=== PATIENT | female | born 1995 | race Caucasian/White ===

== ENCOUNTER 2018-05-19 17:54 | Emergency (ER) | payer SELFPAY ==
[~2018-05-19] VITALS: Ht 167.6 cm; Wt 69.9 kg
--- NOTE | 2018-05-19 18:42 | NUR ---
23 Y/O FEMALE PLACED IN BED 16 C/O HEADACHE.
--- NOTE | 2018-05-19 18:44 | NUR ---
ACI WITH RX GIVEN. PT DISCHARGED HOME TO FOLLOW UP WITH PMD.
[2018-05-19 18:47] VITALS: BP 142/79
== END 2018-05-19 18:47 | disposition home or self-care (01) ==
LOC: ER 17:58
DX: M62.838 Other muscle spasm (principal); Z87.19 Personal history of other diseases of the digestive system
CPT/HCPCS: A4606; Z7610

== ENCOUNTER 2018-05-23 16:13 | Emergency (ER) | payer SELFPAY ==
[~2018-05-23] VITALS: Ht 162.6 cm; Wt 69.9 kg
[2018-05-23 16:13] VITALS: BP 124/90
[2018-05-23] MEDS ORDERED: KETOROLAC TROMETHAMINE INJ 30 MG/ML VIAL ONE (16:41)
[2018-05-23] MEDS ORDERED: KETOROLAC TROMETHAMINE INJ 30 MG/ML VIAL IM ONE (17:00)
--- NOTE | 2018-05-23 17:14 | NUR ---
Patient discharged to home in stable condition. Written and verbal after care instructions given. Patient verbalizes understanding of instruction.
== END 2018-05-23 17:14 | disposition home or self-care (01) ==
LOC: ER 16:16
DX: M62.830 Muscle spasm of back (principal); G44.209 Tension-type headache, unspecified, not intractable
CPT/HCPCS: 96372; 99283; A4606; J1885; Z7610

== ENCOUNTER 2020-08-16 14:45 | Emergency (ER) | payer OTHER ==
[~2020-08-16] VITALS: Ht 167.6 cm; Wt 66.7 kg
--- NOTE | 2020-08-16 15:04 | NUR ---
CAME IN FOR LT SIDE CHEST PAIN, ON & OFF X 2WKS, PRESSURE-LIKE, NON-RADIATING. TO ER BED 6, HOOKED TO [employer], BP CUFF AND POX. PATIENT NOTED SINUS RHYTHM. CHANGED TO HOSP GOWN, WARM BLANKET PROVIDED, PATIENT AAO x 4, NAD NOTED.
[2020-08-16 15:50] LABS: HEMOGLOBIN 12.7 g/dL (11.5-14.8); WHITE BLOOD COUNT (AUTO) 7.2 K/uL (4.3-11.0)
[2020-08-16 15:56] LABS: BASOPHILS % (AUTO) 0.4 % (0.0-2.0); EOSINOPHILS % (AUTO) 0.5 % (0.0-6.0); HEMATOCRIT 38 % (33-45); LYMPHOCYTES # (AUTO) 2.1 /CMM (0.8-4.8); LYMPHOCYTES % (AUTO) 29.5 % (20.0-44.0); MEAN CORPUSCULAR HGB CONC 34 g/dl (31.0-36.0); MEAN CORPUSCULAR VOLUME 89 fL (82-100); MONOCYTES # (AUTO) 0.4 /CMM (0.1-1.30); MONOCYTES % (AUTO) 6.1 % (2.0-12.0); NEUTROPHILS # (AUTO) 4.6 /CMM (1.8-8.9); NEUTROPHILS % (AUTO) 63.5 % (43.0-81.0); PLATELET COUNT (AUTO) 300 /CMM (150-450); RED BLOOD CELL COUNT(AUTO) 4.22 MIL/uL (4.0-5.2)
[2020-08-16 15:59] LABS: CALCIUM, SERUM 8.9 mg/dL (8.5-10.1); CARBON DIOXIDE 28 mmol/L (21-32); CHLORIDE 102 mmol/L (98-107); CREATININE 0.6 mg/dL (0.6-1.3); GLUCOSE 86 mg/dL (74-106); POTASSIUM 3.6 mmol/L (3.5-5.1); SODIUM SERUM 139 mmol/L (136-145); UREA NITROGEN, BLOOD 9 mg/dL (7-18)
--- NOTE | 2020-08-16 16:50 | NUR ---
Patient discharged to home in stable condition. Written and verbal after care instructions given. Patient verbalizes understanding of instruction.
[2020-08-16 16:51] VITALS: BP 117/88
== END 2020-08-16 16:51 | disposition home or self-care (01) ==
LOC: ER 14:46
DX: R07.89 Other chest pain (principal)
CPT/HCPCS: 36415; 71045-TC; 80048-TC; 84484-TC; 85025-TC

== ENCOUNTER 2024-01-08 09:46 | Emergency (ER) | payer OTHER ==
[~2024-01-08] VITALS: Ht 165.1 cm; Wt 70.3 kg
[2024-01-08] MEDS ORDERED: KETOROLAC TROMETHAMINE 15 MG/ML VIAL ONE (10:35)
[2024-01-08] MEDS ORDERED: ONDANSETRON HCL/PF 4 MG/2 ML VIAL ONE (10:35)
[2024-01-08 10:38] LABS: BASOPHILS % (AUTO) 0.3 % (0.0-2.0); EOSINOPHILS % (AUTO) 0.1 % (0.0-6.0); HEMATOCRIT 36 % (33-45); HEMOGLOBIN 12.3 g/dL (11.5-14.8); LYMPHOCYTES # (AUTO) 1.3 K/uL (0.8-4.8); LYMPHOCYTES % (AUTO) 10.2 % (20.0-44.0); MEAN CORPUSCULAR HEMOGLOBIN 30 PG (26.0-33.0); MEAN CORPUSCULAR HGB CONC 34 g/dl (31.0-36.0); MEAN CORPUSCULAR VOLUME 87 fL (82-100); MONOCYTES # (AUTO) 0.7 K/uL (0.1-1.30); MONOCYTES % (AUTO) 5.5 % (2.0-12.0); NEUTROPHILS # (AUTO) 10.4 K/uL (1.8-8.9); NEUTROPHILS % (AUTO) 83.9 % (43.0-81.0); PLATELET COUNT (AUTO) 295 K/uL (150-450); RED BLOOD CELL COUNT(AUTO) 4.15 MIL/uL (4.0-5.2); RED CELL DISTRIBUTION WIDTH 13.2 % (11.5-15.0); WHITE BLOOD COUNT (AUTO) 12.4 K/uL (4.3-11.0)
[2024-01-08 10:42] LABS: APPEARANCE,URINE Cloudy (CLEAR); BILIRUBIN,URINE Negative (NEGATIVE); BLOOD, URINE Moderate Ery/uL (NEGATIVE); COLOR,URINE YELLOW (YELLOW); KETONES,URINE Trace mg/dL (NEGATIVE); LEUKOCYTE ESTERASE ,URINE Moderate (NEGATIVE); NITRITE, URINE Negative (NEGATIVE); PH,URINE 5.5 (5.0-8.0); PROTEIN,URINE Trace mg/dl (NEGATIVE); UGLUCOSE Negative (NEGATIVE)
[2024-01-08] MEDS: KETOROLAC TROMETHAMINE 15 MG/ML VIAL IV ONE (10:42)
[2024-01-08] MEDS: ONDANSETRON HCL/PF 4 MG/2 ML VIAL IVP ONE (10:42)
[2024-01-08] MEDS: IV NS 0.9% 1,000 ML BAG IV ONE (10:43)
[2024-01-08 10:45] LABS: CALCIUM, SERUM 8.7 mg/dL (8.5-10.1); CREATININE 0.7 mg/dL (0.6-1.3); POTASSIUM 3.8 mmol/L (3.5-5.1)
[2024-01-08 10:46] LABS: PREGNANCY TEST URINE QUAL NEGATIVE (NEGATIVE)
[2024-01-08 10:51] LABS: ALBUMIN 3.9 g/dL (3.4-5.0); BILIRUBIN,DIRECT 0.2 mg/dL (0.0-0.2); BILIRUBIN,TOTAL 0.9 mg/dL (0.2-1.0); TOTAL PROTEIN, SERUM 8.1 g/dL (6.4-8.2)
[2024-01-08 10:58] LABS: ADD URINE CULTURE YES; WBC,URINE 21-50 /HPF (0-3)
[2024-01-08 10:59] LABS: BACTERIA,URINE Moderate /HPF (None Seen)
[2024-01-08] MEDS ORDERED: IBUP-1953 PO (11:28)
[2024-01-08] MEDS ORDERED: CEPH500T PO (11:28)
[2024-01-08] MEDS: CEFTRIAXONE 1 G in IV D5W 50 ML IV ONE (11:51)
[2024-01-08] MEDS: CEFTRIAXONE 1GM BAG (ER ONLY) 1 GM/50 ML PIGGYBACK IV ONE (11:51)
[2024-01-08 12:34] VITALS: BP 118/67; TEMP 99; O2SAT 100
== END 2024-01-08 12:23 | disposition home or self-care (01) ==
LOC: ER 10:01
DX: N12 Tubulo-interstitial nephritis, not specified as acute or chronic (principal); R10.2 Pelvic and perineal pain
CPT/HCPCS: 99285; 74176; 96365; 96375; 96361; 85025; 80048; 80076; 84703; 81001; 36415; J0696 ×2; J2405; J7060; J7030; J1885

== ENCOUNTER 2024-02-20 17:11 | Emergency (ER) | payer OTHER ==
[~2024-02-20] VITALS: Ht 165.1 cm; Wt 68.0 kg
[~2024-02-20 17:11] MED LIST: CEPH500T PO; IBUP-1953 PO
[2024-02-20 17:32] VITALS: BP 135/72; TEMP 98.4
[2024-02-20 18:40] VITALS: O2SAT 99
== END 2024-02-20 18:41 | disposition home or self-care (01) ==
LOC: ER 17:11
DX: S00.83XA Contusion of other part of head, initial encounter (principal); Z79.1 Long term (current) use of non-steroidal anti-inflammatories (NSAID); Z79.899 Other long term (current) drug therapy; Y04.0XXA Assault by unarmed brawl or fight, initial encounter; Y93.89 Activity, other specified; Y92.89 Other specified places as the place of occurrence of the external cause; Y99.8 Other external cause status

== ENCOUNTER 2024-04-14 18:26 | Emergency (ER) | payer OTHER ==
[~2024-04-14] VITALS: Ht 167.6 cm; Wt 72.6 kg
[2024-04-14 18:47] VITALS: BP 121/65; TEMP 98.3; O2SAT 98
== END 2024-04-14 21:39 | disposition home or self-care (01) ==
LOC: ER 18:34
DX: S82.64XA Nondisplaced fracture of lateral malleolus of right fibula, initial encounter for closed fracture (principal); X50.1XXA Overexertion from prolonged static or awkward postures, initial encounter; Y93.89 Activity, other specified; Y92.89 Other specified places as the place of occurrence of the external cause; Y99.8 Other external cause status
CPT/HCPCS: 73610-TC; 73630-TC

== ENCOUNTER 2024-08-30 12:46 | Emergency (ER) | payer OTHER ==
[~2024-08-30] VITALS: Ht 167.6 cm; Wt 81.6 kg
[2024-08-30] MEDS ORDERED: LIDO30AD10 TP (15:32)
[2024-08-30] MEDS ORDERED: BACL5TAB PO (15:32)
[2024-08-30] MEDS ORDERED: IBUP-1957 PO (15:32)
[2024-08-30 16:04] VITALS: BP 120/75; TEMP 98.5; O2SAT 99
== END 2024-08-30 15:50 | disposition home or self-care (01) ==
LOC: ER 13:11
DX: S39.012A Strain of muscle, fascia and tendon of lower back, initial encounter (principal); Z79.1 Long term (current) use of non-steroidal anti-inflammatories (NSAID); Z79.899 Other long term (current) drug therapy; X58.XXXA Exposure to other specified factors, initial encounter; Y93.89 Activity, other specified; Y92.89 Other specified places as the place of occurrence of the external cause; Y99.8 Other external cause status